=== PATIENT | female | born 1985 | race African-American/Black ===

== ENCOUNTER → 2019-09-24 | Outpatient (CLI) | payer MEDICARE, MEDICAID ==
[~2019-09-24] MED LIST: AMOXICILLIN 50500 MG PO; AMOXICILLIN/CLA1 TA1 PO; BACTRIM DS 8001 TAB PO; CLEOCIN HC150 MG/CAP PO; CLEOCIN HCL300 MG PO; DAZIDOX10 MG PO; LORTAB 5/500 501 TAB PO; MEDROL 4MG DOSPA4 MG PO; MOBIC15 MG PO; MOTRIN800 MG PO; NORCO 325 MG-51 TAB PO; PERCOCET 325 MG1 TA2 PO; PERCOCET 325 MG1 TAB PO; PRENATAL1 TA1 PO; PRINIVIL5 MG PO; TUSS PO; TYLENOL 325MG325 MG PO; VITAMIN D31000 I1 PO; ZOFRAN 4MG T4 MG/TAB PO; ZOFRAN ODT4 MG PO
== END ==
LOC: ZCOL.LAB 16:07
DX: L73.2 Hidradenitis suppurativa (principal)

== ENCOUNTER → 2019-09-24 | Outpatient (CLI) | payer MEDICARE | LOC: ZCOL.LAB 17:35 | DX: L73.2 Hidradenitis suppurativa (principal) ==

== ENCOUNTER → 2020-03-03 | Outpatient (CLI) | payer MEDICARE, MEDICAID ==
[~2020-03-03] MED LIST changes: +IBU600 MG PO; +NORMODYNE100 MG PO; +PRENATAL
== END ==
LOC: ZCOL.LAB 16:51
DX: L73.2 Hidradenitis suppurativa (principal)

== ENCOUNTER → 2020-04-04 | Outpatient (REF) | LOC: WSOH 11:18 | DX: Z02.89 Encounter for other administrative examinations (principal); I10 Essential (primary) hypertension; L73.2 Hidradenitis suppurativa; Z87.59 Personal history of other complications of pregnancy, childbirth and the puerperium | CPT/HCPCS: G0463 ==

== ENCOUNTER 2020-07-04 14:21 | Emergency (ER) | payer MEDICAID ==
[~2020-07-04] VITALS: Ht 165.1 cm; Wt 126.4 kg
[2020-07-04 14:29] VITALS: TEMP 97.6
[2020-07-04] MEDS ORDERED: NORCO 325 MG-51 TAB PO (15:52)
[2020-07-04] MEDS ORDERED: ROBAXIN 75750 MG/TAB PO (15:52)
[2020-07-04 16:14] VITALS: BP 132/84; PULSE 86
== END 2020-07-04 16:20 | disposition home or self-care (01) ==
LOC: COL.ER 14:21
DX: S06.0X0A Concussion without loss of consciousness, initial encounter (principal); I10 Essential (primary) hypertension; Z88.6 Allergy status to analgesic agent; Z88.1 Allergy status to other antibiotic agents; W01.10XA Fall on same level from slipping, tripping and stumbling with subsequent striking against unspecified object, initial encounter; Y92.524 Gas station as the place of occurrence of the external cause
CPT/HCPCS: J1885; J2270

== ENCOUNTER → 2020-09-15 | Outpatient (REF) ==
[~2020-09-15] MED LIST changes: +ROBAXIN 75750 MG/TAB PO
== END ==
LOC: COL.LAB 12:44
DX: Z20.822 Contact with and (suspected) exposure to COVID-19 (principal)

== ENCOUNTER → 2020-10-14 | Outpatient (CLI) | payer MEDICAID | LOC: ZCOL.LAB 19:02 | DX: N61.1 Abscess of the breast and nipple (principal) ==

== ENCOUNTER → 2021-10-06 | Outpatient (CLI) | payer MEDICAID | LOC: ZCOL.LAB 16:23 | DX: L73.2 Hidradenitis suppurativa (principal) ==

== ENCOUNTER 2021-10-19 07:45 | Day surgery (SDC) | payer MEDICAID ==
[~2021-10-19] VITALS: Ht 165.1 cm; Wt 121.2 kg
[2021-10-19] VITALS (7 sets, daily range): BP systolic 122–148; BP diastolic 77–99; PULSE 84–100; TEMP 98.2–99.1
[2021-10-19] MEDS ORDERED: NORVASC 5MG5 MG/TAB PO (08:49)
[2021-10-19] MEDS ORDERED: HYGROTON 2525 MG/TAB (08:52)
[2021-10-19] MEDS ORDERED: CLINDAGEL 40 ML40 ML TOP (08:53)
[2021-10-19] MEDS ORDERED: NORCO 325 MG-51 TAB PO (11:10)
--- NOTE | 2021-10-19 13:55 | NUR ---
1155 TO ROOM 1 FROM PACU. ALERT. RESP CLEAR , SPONTANEOUS. PATIENT EXPRESSES COMFORT AT THIS TIME. DRESSINGS/GAUZE PRESENT X 4 SITES: ;EFT BREAST, RIGHT AXILLA, LEFT GROIN, AND RIGHT GROIN. SMALL AMOUNT OF PINK DRAINAGE OBSERVED ON RIGHT AXILLA AND LEFT GROIN DRESSINGS. AREA MARKED FOR FUTURE REFERENCE. 1210 AWAKE, ALERT, USES TELEPHONE. DENIES NAUSEA, TOLERATES PO SODA AND CRACKERS WITHOUT NAUSEA. 1225 DRAINAGE ON DRESSINGS UNCHANGED FROM INITIAL ASSESSMENT. 1317 PO PAIN MED GIVEN PER PATIENT REQUEST PRIOR TO DISCHARGE AND RIDE HOME. NO CHANGE IN DRESSINGS. 1320 DISCHARGE INSTRUCTIONS REVIEWED WITH PATIENT VERBALIZING UNDERSTANDING. COPY OF INSTRUCTIONS AND EDUCATIONAL MATERIALS PROVIDED TO PATIENT. 1330 TO ER ENTRANCE PER WHEELCHAIR ACCOMPANIED BY THIS NURSE. 1355 TO PATIENT ENTRANCE AFTER WAITING IN ER ENTRANCE. PATIENT DISCHARGED TRANSPORTATION HOME PER [facility]
== END 2021-10-19 13:55 ==
LOC: SDCO 07:45
DX: L73.2 Hidradenitis suppurativa (principal); F17.210 Nicotine dependence, cigarettes, uncomplicated
CPT/HCPCS: J1170; J2704; J3010; J7120